=== PATIENT | male | born 1980 | race African-American/Black ===

== ENCOUNTER → 2022-12-03 12:29 | Outpatient (CLI) | payer OTHER, SELFPAY ==
--- NOTE | 2022-12-10 12:04 | PM.PFT.1 ---
Pulmonary Function Test Referral & Results Date Patient Seen: 12/03/22 Results: The spirometry demonstrates an FVC of 4.12 L which is 70% of predicted. The FEV1 was measured at 3.27 L which is 70% of predicted. The FEV1/FVC ratio was 79 which is 100% of predicted. Following the administration of bronchodilator there was an 8% improvement in FEV1 and a 35% improvement in FEF 25-75%. Interpretation: This study, which was done as forced spirometry only, demonstrates possibly mild obstructive lung disease based on reduction FEV1 although FEV1/FVC ratio is preserved. There is evidence of some benefit following bronchodilator particularly small airway flow based on improvement in FEF 25-75% as above. Shape of flow volume loop also supports the presence a mild degree of obstructive lung disease Clinical correlation suggested
== END ==
PROVIDERS: Referring Provider Chiropractor; Visit Provider Chiropractor
DX: J45.909 Unspecified asthma, uncomplicated (principal)
CPT/HCPCS: 94060; 94726; 94729